=== PATIENT | female | born 1950 | race Caucasian/White ===

== ENCOUNTER → 2024-09-22 09:17 | Outpatient (REF) | payer MEDICARE, OTHER, SELFPAY | LOC: HWEVLT 09:17 | PROVIDERS: ATTENDING PHYSICIAN Radiology Diagnostic Radiology | DX: I83.893 Varicose veins of bilateral lower extremities with other complications (principal) | CPT/HCPCS: 93970 ==

== ENCOUNTER 2024-11-12 04:17 | Emergency (ER) | payer MEDICARE, OTHER, SELFPAY ==
[2024-11-12 04:19] VITALS: BP 155/98
[2024-11-12 04:37] VITALS: BMI 31.6
--- NOTE | 2024-11-12 04:38 | ED.GENMED ---
History of Present Illness
<Sergo Mcarthur MD - Last Filed: 11/12/24 17:09>
General
Chief Complaint: Flank Pain
Source: patient
Exam Limitations: none
Time Seen by Provider: 11/12/24 04:23
Nursing documentation reviewed up to this point in time: agreed with
History of Present Illness
History of Present Illness:
Patient presents to ED secondary to sudden onset of right upper back pain, which started around 9 PM, while she was at home. Patient reports having had dinner consisting of pasta and eggplant around 7 PM. Denies trauma. Denies fever or chills.
Denies shortness of breath. Denies chest pain. Denies nausea or vomiting. Denies recent change in medications or diet. Denies recent change in activities. Denies recent travel or surgery. Denies leg pain or swelling. Denies previous history
of similar symptoms. Denies family history of blood clots.
Past History
<Sergo Mcarthur MD - Last Filed: 11/12/24 17:09>
Past History
ED Past Medical History: GERD and HTN; Negative Asthma, Hypercholesterolemia or NIDDM
ED Past Surgical History: None
Social History
Tobacco: Non-smoker
Alcohol: Occasional
Personal:
Living: with family
Review of Systems
<Sergo Mcarthur MD - Last Filed: 11/12/24 17:09>
Review of Systems
Allergies reviewed?: Yes
All Other Systems: ROS reviewed and negative except as documented in HPI and ROS
Constitutional: Reports no symptoms
Respiratory: Reports no symptoms; Denies trouble breathing
Cardiac: Reports no symptoms; Denies chest pain
ABD/GI: Reports no symptoms
Musculoskeletal: Reports back pain
Skin: Reports no symptoms
Neurological: Reports no symptoms
Phy Exam
<Sergo Mcarthur MD - Last Filed: 11/12/24 17:09>
Physical Exam
Physical Exam:
Physical Exam
General: mild painful distress, not acutely ill. afebrile
Head: nc/at. eomi
Neck: supple. no meningeal signs.
Heart: s1/s2 regular rate and rhythm
Lungs: no acute respiratory distress. clear bilaterally. chest wall nontender to palpation
Abdomen: normal bowel sounds. not tender.
Back: no midline tenderness to palpation.
Neuro: alert and oriented x 3. no focal neurological deficits
Skin: no rash
Psychiatric: well kept. interactive and cooperative
Extremities: no edema. no calf tenderness.
Course
<Sergo Mcarthur MD - Last Filed: 11/12/24 17:09>
Orders/Labs/Results
Orders:
Orders
11/12/24 04:37
Electrocardiogram (*1) Urgent
Reason for Study: Other
Other Reason for Exam: upper back pain
EKG- Treatment ONCE
Ketorolac [Toradol] 30 mg IV NOW STA
CR Chest - 2 Views Urgent
Comment:
Reason For Exam: right upper back pain
11/12/24 04:50
Complete Blood Count/No Diff Urgent
Comprehensive Metabolic Panel Urgent
D-Dimer Urgent
Ferritin Urgent
Comment: ADD ON
Iron Urgent
Comment: ADD ON
Total Iron Binding Urgent
Troponin I Urgent
Urinalysis Reflex To Culture Urgent
Date Specimen was Collected: 11/12/24
Time Specimen was Collected: 04:43
11/12/24 05:08
Add On- LAB Urgent
Tests Added?: iron, ferritin, TIBC
11/12/24 05:39
Morphine Sulfate 2 mg IV NOW STA
11/12/24 05:40
CT Abd/pel Without Iv Or Oral Urgent
Comment:
Reason For Exam: right mid back/flank pain
Abnormal Lab Results
11/12/24
04:50
RBC 4.02 L 10^6/uL
(4.20-5.40)
Hgb 10.8 L g/dL
(12.0-16.0)
Hct 34.3 L %
(37.0-47.0)
MCH 26.9 L pg
(27.0-31.0)
MCHC 31.5 L g/dL
(33.0-37.0)
RDW 14.7 H %
(11.5-14.5)
MPV 11.2 H fL
(7.4-10.4)
BUN 22 H mg/dl
(7-17)
Glucose 108 H mg/dl
(70-99)
Calcium 10.3 H mg/dl
(8.4-10.2)
% Saturation 8 L %
(20-50)
Ferritin 8.2 L ng/ml
(11.1-264.0)
11/12/24 04:50
11/12/24 04:50
Vital Signs
Initial and Last Documented VS:
Initial Vital Signs
Temp Pulse Resp BP Pulse Ox
98.6 F 72 16 155/98 96
11/12/24 04:19 11/12/24 04:19 11/12/24 04:19 11/12/24 04:19 11/12/24 04:19
Last Documented Vital Signs
Temp Pulse Resp BP Pulse Ox
98.6 F 63 17 163/80 96
11/12/24 04:19 11/12/24 06:00 11/12/24 06:00 11/12/24 07:05 11/12/24 07:05
<Aurelio Camarillo, DO - Last Filed: 11/12/24 06:52>
Orders/Labs/Results
Orders:
Orders
11/12/24 04:37
Electrocardiogram (*1) Urgent
Reason for Study: Other
Other Reason for Exam: upper back pain
EKG- Treatment ONCE
Ketorolac [Toradol] 30 mg IV NOW STA
CR Chest - 2 Views Urgent
Comment:
Reason For Exam: right upper back pain
11/12/24 04:50
Complete Blood Count/No Diff Urgent
Comprehensive Metabolic Panel Urgent
D-Dimer Urgent
Ferritin Urgent
Comment: ADD ON
Iron Urgent
Comment: ADD ON
Total Iron Binding Urgent
Troponin I Urgent
Urinalysis Reflex To Culture Urgent
Date Specimen was Collected: 11/12/24
Time Specimen was Collected: 04:43
11/12/24 05:08
Add On- LAB Urgent
Tests Added?: iron, ferritin, TIBC
11/12/24 05:39
Morphine Sulfate 2 mg IV NOW STA
11/12/24 05:40
CT Abd/pel Without Iv Or Oral Urgent
Comment:
Reason For Exam: right mid back/flank pain
Abnormal Lab Results
11/12/24
04:50
RBC 4.02 L 10^6/uL
(4.20-5.40)
Hgb 10.8 L g/dL
(12.0-16.0)
Hct 34.3 L %
(37.0-47.0)
MCH 26.9 L pg
(27.0-31.0)
MCHC 31.5 L g/dL
(33.0-37.0)
RDW 14.7 H %
(11.5-14.5)
MPV 11.2 H fL
(7.4-10.4)
BUN 22 H mg/dl
(7-17)
Glucose 108 H mg/dl
(70-99)
Calcium 10.3 H mg/dl
(8.4-10.2)
% Saturation 8 L %
(20-50)
Ferritin 8.2 L ng/ml
(11.1-264.0)
11/12/24 04:50
11/12/24 04:50
Vital Signs
Initial and Last Documented VS:
Initial Vital Signs
Temp Pulse Resp BP Pulse Ox
98.6 F 72 16 155/98 96
11/12/24 04:19 11/12/24 04:19 11/12/24 04:19 11/12/24 04:19 11/12/24 04:19
Last Documented Vital Signs
Temp Pulse Resp BP Pulse Ox
98.6 F 63 17 163/80 96
11/12/24 04:19 11/12/24 06:00 11/12/24 06:00 11/12/24 07:05 11/12/24 07:05
<Sergo Mcarthur MD - Last Filed: 11/12/24 17:09>
*Pulse Oximetry
SaO2: 96
Oxygen Mode of Delivery: Room air
Patient hypoxic: no
*EKG
Interpreted by ED Provider?: Yes
EKG Intrepretation Date: 11/12/24
Heart Rate: 61
Rate: normal
Rhythm: sinus
[place]: normal axis
Interval: normal interval
*Critical Care Note
Total Time (30-74mins, 75-104mins- exclusive of procedures): Not Applicable
<Aurelio Camarillo DO - Last Filed: 11/12/24 06:52>
Update Note
Update Note:
6:50 AM the care of patient was transitioned earlier pending CT abdomen/pelvis results. CT without obvious pathology. Of note, there is what appears to be a left ovarian cyst. This is not in the area of pain. We discussed outpatient ultrasound.
Will write for short course of pain medicine but discussed outpatient follow-up PCP. On my exam, patient is sitting in bed comfortably and symptoms have resolved and she feels comfortable going home
ED Attending Note
<Sergo Mcarthur MD - Last Filed: 11/12/24 17:09>
-
Portions of this chart may have been created with voice recognition software.� Occasional wrong word or��sound alike� substitutions may have occurred due to the inherent limitations of voice recognition software.
Discharge Plan
Departure
Patient Disposition: Home (Routine Discharge)
Date of Disposition: 11/12/24
Time of Disposition: 06:50
Patient with high blood pressure during this ER visit?: Yes
Discharge Problem:
Acute right flank pain
Instructions: Flank Pain (DC), BLOOD PRESSURE
Prescriptions:
New
oxycodone 5 mg tablet
5 mg PO Q8H PRN (Reason: Pain) Qty: 7 0RF
No Action
ergocalciferol (vitamin D2) 400 UNIT tablet
400 unit PO DAILY
losartan 50 MG tablet
50 mg PO HS
omeprazole 10 MG capsule,delayed release(DR/EC)
10 mg PO DAILY
turmeric 400 MG capsule
400 mg PO DAILY
Referrals:
Glenda Banks MD [Family Provider, Internal Medicine]
Activity Restrictions/Additional Instructions:
Please return for any worsening symptoms.
You may return at any time if you have further concerns.
Please follow up with your doctor at the first available appointment, preferably this week.
Please discuss obtaining an outpatient ultrasound to evaluate the left ovarian cyst seen on the CT scan.
Thank you for choosing [facility].
Interventions
Interventions:
*Risk Screen - Suicide Last Done: 11/12/24 04:19
*General Assessment Last Done: 11/12/24 04:19
*Neglect/Abuse Screening Last Done: 11/12/24 04:19
*ED- Fall Risk Assessment Last Done: 11/12/24 04:37
*ED COVID-19 Vaccine History Last Done: 11/12/24 04:37
*Nursing Disposition Last Done: 11/12/24 07:05
YL-Irojmz-Yrqlhewwqd Assessment Last Done: 11/12/24 04:32
ED-Female Genitourinary Assessment Last Done: 11/12/24 04:32
Discharge Date and Time
Discharge Date/Time: 11/12/24 07:10
Print Language: BRUNEIAN
[2024-11-12 04:43] VITALS: BP 166/77
[2024-11-12] MEDS: TORADOL 30 MG IV (04:54)
[2024-11-12 05:05] LABS: Hematocrit 34.3 % (37.0-47.0); Hemoglobin 10.8 g/dL (12.0-16.0); Mean Corp Hgb Conc. 31.5 g/dL (33.0-37.0); Mean Corpuscular Volume 85.3 fL (81.0-99.0); Platelet Count 301 10^3/uL (130-400); Red Cell Dist. Width 14.7 % (11.5-14.5)
[2024-11-12 05:06] LABS: Urine Character Clear (Clear)
[2024-11-12 05:23] LABS: D-Dimer < 0.27 ug/mlFEU (0.00-0.50)
[2024-11-12 05:40] LABS: ALT (SGPT) 16 U/L (0-35); AST (SGOT) 21 U/L (14-36); Albumin 4.0 g/dl (3.5-5.0); Alkaline Phosphatase 49 U/L (38-126); Blood Urea Nitrogen 22 mg/dl (7-17); Calcium 10.3 mg/dl (8.4-10.2); Carbon Dioxide 24 mmol/L (22-30); Chloride 107 mmol/L (98-107); Estimated Creatinine Clearance 75 ml/min; Glucose 108 mg/dl (70-99); Iron 38 ug/dl (37-170); Potassium 4.6 mmol/L (3.5-5.1); Sodium 138 mmol/L (135-145); Total Protein 6.6 g/dl (6.3-8.2); eGFR > 60.00
[2024-11-12] MEDS: MORPHINE SULFATE 2 MG IV (05:43)
[2024-11-12 05:50] LABS: Total Iron Binding Capacity 425 ug/dl (265-497)
[2024-11-12 05:54] LABS: Troponin I < 0.012 ng/ml
[2024-11-12 06:00] VITALS: BP 163/80
[2024-11-12 06:39] LABS: Ferritin 8.2 ng/ml (11.1-264.0)
[2024-11-12 07:05] VITALS: BP 163/80
== END 2024-11-12 07:10 | disposition home or self-care (01) ==
LOC: EMR 04:17
PROVIDERS: EMERGENCY PHYSICIAN Emergency Medicine; FAMILY PHYSICIAN Internal Medicine
DX: R10.9 Unspecified abdominal pain (principal); M54.6 Pain in thoracic spine; I10 Essential (primary) hypertension; K21.9 Gastro-esophageal reflux disease without esophagitis
CPT/HCPCS: 99285; 96374; 96375; 71046; 74176; 80053; 81003; 82728; 83540; 83550; 84484; 85027; 85379; 93005

== ENCOUNTER → 2025-01-10 08:04 | Outpatient (REF) | payer MEDICARE, OTHER, SELFPAY | LOC: HWEVLT 08:04 | PROVIDERS: ATTENDING PHYSICIAN Radiology Vascular & Interventional Radiology | DX: I83.891 Varicose veins of right lower extremity with other complications (principal) | CPT/HCPCS: 36478; C1769 ==

== ENCOUNTER → 2025-01-19 16:23 | Outpatient (REF) | payer MEDICARE, OTHER, SELFPAY | LOC: HWEVLT 16:23 | PROVIDERS: ATTENDING PHYSICIAN Radiology Diagnostic Radiology | DX: I83.891 Varicose veins of right lower extremity with other complications (principal) | CPT/HCPCS: 93971 ==

== ENCOUNTER → 2025-02-15 08:14 | Outpatient (REF) | payer MEDICARE, OTHER, SELFPAY | LOC: HWEVLT 08:14 | PROVIDERS: ATTENDING PHYSICIAN Radiology Vascular & Interventional Radiology | DX: I83.892 Varicose veins of left lower extremity with other complications (principal) | CPT/HCPCS: 36478; C1769 ==

== ENCOUNTER → 2025-02-28 08:01 | Outpatient (REF) | payer MEDICARE, OTHER, SELFPAY | LOC: HWEVLT 08:01 | PROVIDERS: ATTENDING PHYSICIAN Radiology Vascular & Interventional Radiology | DX: I83.892 Varicose veins of left lower extremity with other complications (principal) | CPT/HCPCS: 93971 ==